=== PATIENT | female | born 1985 | race Caucasian/White ===

== ENCOUNTER 2021-01-03 05:24 | Emergency (ER) | payer SELFPAY ==
[~2021-01-03] VITALS: Ht 162.6 cm; Wt 170.1 kg
--- NOTE | 2021-01-03 05:55 | PHYS DOC ---
Past History Past Surgical History: Tonsillectomy (QI SHAY MD) Alcohol Use: None (QI SHAY MD) Adult General Chief Complaint Chief Complaint: ABDOMINAL PAIN HPI HPI Patient is a 35-year-old female who presents to the emergency department with a chief complaint of right upper quadrant abdominal pain. States has been going on over the last couple of days, is worse after eating, 8 out of 10 at its worst in pain, sharp in nature with no radiation. States it does come with nausea but no vomiting. States she had not anything like this before. Denies any recent traumas, travels, illnesses, fevers, chest pain, shortness of breath, dysuria, hematuria, blood in the stool or diarrhea. (QI SHAY MD) Review of Systems Review of Systems Review of systems otherwise unremarkable except noted in HPI (QI SHAY MD) Allergies Allergies Allergies Coded Allergies Type Severity Reaction Last Updated Verified prednisone Allergy Intermediate 01/03/21 Yes (QI SHAY MD) Physical Exam Physical Exam Constitutional: Well developed, well nourished, no acute distress, non-toxic appearance. [] HENT: Normocephalic, atraumatic, bilateral external ears normal, oropharynx moist, no oral exudates, nose normal. [] Eyes: conjunctiva normal, no discharge. [] Neck: Normal range of motion, no tenderness, supple, no stridor. [] Cardiovascular:Heart rate regular rhythm, no murmur [] Lungs & Thorax: Bilateral breath sounds clear to auscultation [] Abdomen:soft, no tenderness, no masses, no pulsatile masses. [] Skin: Warm, dry, no erythema, no rash. [] Back: No tenderness, no CVA tenderness. [] Extremities: No tenderness, ROM intact, no edema. [] Neurologic: Alert and oriented X 3, no focal deficits noted. [] Psychologic: Affect normal, judgement normal, mood normal. [] (QI SHAY MD) Current Patient Data Vital Signs Vital Signs Date Time Temp Pulse Resp B/P (MAP) Pulse Ox O2 Delivery O2 Flow Rate FiO2 01/03/21 05:31 97.7 96 24 146/88 98 Room Air (QI SHAY MD) EKG EKG [] (QI SHAY MD) Radiology/Procedures Radiology/Procedures [] (QI SHAY MD) Heart Score C/O Chest Pain: No Risk Factors: Risk Factors: DM, Current or recent (<one month) smoker, HTN, HLP, family history of CAD, obesity. Risk Scores: Risk Factors: DM, Current or recent (<one month) smoker, HTN, HLP, family history of CAD, obesity. (QI SHAY MD) Course & Med Decision Making Course & Med Decision Making Patient is a 35-year-old female presents with right-sided flank pain for 2 days Vital signs notable for hypertension. Physical exam noted above. Patient placed on monitor with IV access established and IV fluid begun. Given Zofran for nausea and fentanyl for pain. [] (QI SHAY MD) Course & Med Decision Making I received comprehensive signout from off going physician I personally saw patient repeating certain aspects of history and physical exam. Pain improved with IV pain medication and nausea medication I disclosed all findings such as labs and imaging that were all negative for any emergent or surgical issues Patient establishing care with a local PCP. During decision made to discharge home with short-term dose of narcotic pain medication for severe pain in addition to nausea medication as needed Patient understands all findings from ER visit today and understands this might be an acute presentation more concerning pathology but at present, joint decision made to discharge home Strict return precautions were discussed with good understanding by patient, all questions and concerns addressed prior to ER departure (JHONATHAN CASTRO DO) Dragon Disclaimer Dragon Disclaimer This electronic medical record was generated, in whole or in part, using a voice recognition dictation system. (QI SHAY MD) Departure Departure: Impression: Primary Impression: Abdominal pain Disposition: HOME / SELF CARE / HOMELESS Condition: STABLE Referrals: PCP,NO (PCP) Patient Instructions: Abdominal Pain (Nonspecific) Additional Instructions: You have been evaluated in the Emergency Department today for abdominal pain. Your evaluation was not suggestive of any emergent condition requiring medical intervention at this time. However, some abdominal problems make take more time to appear. Therefore, it is important for you to watch for any new symptoms or worsening of your current condition. Please used information below to contact [facility] for close outpatient follow-up Return to the Emergency Department if you experience worsening pain, persistent fevers greater than 100.4, recurrent vomiting, blood in vomit, blood in stool, dark tarry stool, chest pain, difficulty breathing, or any other concerning symptoms. [facility] Address: [address] , [place] [address] Hours: 8am-4:30pm Scripts Hydrocodone Bit/Acetaminophen (HYDROCODONE-APAP 5-325 ) 1 Each Tablet 1 TAB PO PRN Q6HRS PRN for PAIN, #10 TAB 0 Refills Prov: JHONATHAN CASTRO DO 01/03/21 Ondansetron Hcl (ZOFRAN) 4 Mg Tablet 1 TAB PO Q6HRS for nausea, #20 TAB Prov: JHONATHAN CASTRO DO 01/03/21 QI SHAY MD Jan 03, 2021 05:55 JHONATHAN CASTRO DO Jan 03, 2021 08:58
[2021-01-03] MEDS ORDERED: ONDANSETRON PF 4 MG/2 ML VIAL. IVP ONE (06:00)
[2021-01-03] MEDS ORDERED: IOHEXOL 300 MG/ML 75 ML VIAL. IV ONE (06:00)
[2021-01-03] MEDS ORDERED: CONTRAST GIVEN. MC PRN (06:15)
[2021-01-03 06:27] LABS: BASO # 0.1 x10^3/uL (0.0-0.2); BASO % 1 % (0-3); EOS # 0.3 x10^3/uL (0.0-0.7); EOS % 4 % (0-3); HEMATOCRIT 43.2 % (36.0-47.0); HEMOGLOBIN 14.4 g/dL (12.0-15.5); LYMPH # 1.9 x10^3/uL (1.0-4.8); LYMPH % 24 % (24-48); MEAN CORPUSCULAR HEMOGLOBIN 30 pg (25-35); MEAN CORPUSCULAR HGB CONC 34 g/dL (31-37); MEAN CORPUSCULAR VOLUME 91 fL (79-100); MONO # 0.7 x10^3/uL (0.0-1.1); MONO % 8 % (0-9); NEUT # 5.1 x10^3uL (1.8-7.7); NEUT % 63 % (31-73); PLATELET COUNT 320 x10^3/uL (140-400); RED BLOOD COUNT 4.76 x10^6/uL (3.50-5.40); RED CELL DISTRIBUTION WIDTH 14.1 % (11.5-14.5)
[2021-01-03 06:31] LABS: BILIRUBIN,URINE NEG (NEG); CLARITY,URINE CLEAR; COLOR,URINE YELLOW; GLUCOSE,URINE NEG (NEG); NITRITE,URINE NEG (NEG); UROBILINOGEN,URINE 0.2 mg/dL (0.2 mg/dL)
[2021-01-03 06:33] LABS: BACTERIA,URINE 0 /HPF (0-FEW); RBC,URINE RARE /HPF (0-2); SQUAMOUS EPITHELIAL CELL,UR OCC /LPF; WBC,URINE OCC /HPF (0-4)
[2021-01-03 06:34] VITALS: BP 144/66
[2021-01-03 06:36] LABS: CALCIUM 8.7 mg/dL (8.5-10.1); CREATININE 0.9 mg/dL (0.6-1.0); GFR 72.1; POTASSIUM 5.1 mmol/L (3.5-5.1)
[2021-01-03 06:41] LABS: ALBUMIN 3.7 g/dL (3.4-5.0); TOTAL BILIRUBIN 0.3 mg/dL (0.2-1.0); TOTAL PROTEIN 7.4 g/dL (6.4-8.2)
[2021-01-03 07:41] LABS: U PREG PATIENT NEGATIVE (NEG)
--- NOTE | 2021-01-03 08:24 | RAD ---
PQRS Compliance Statement: One or more of the following individualized dose reduction techniques were utilized for this examinat ion: 1. Automated exposure control 2. Adjustment of the mA and/or kV according to patient size 3. Use of iterative reconstruction technique CT abdomen/pelvis with contrast 01/03/2021 7:49 AM INDICATION: Right upper quadrant pain COMPARISON: None available TECHNIQUE: Multiple axial CT images of the abdomen and pelvis were obtained after the intravenous adm inistration of nonionic contrast. Coronal and sagittal reformats are provided. FINDINGS: Lung bases are clear. There is small hiatal hernia. Heart size is within normal limits. Liver, spleen , adrenal glands, pancreas and gallbladder are normal in appearance. The abdominal aorta is normal in course and caliber. There are no pathologically enlarged lymph nodes in the abdomen and pelvis. Ther e is no intrahepatic or extrahepatic biliary ductal dilatation. There is no abdominal free fluid. The re is no free intraperitoneal air. Portal venous system appears widely patent. Small and large bowel are normal in caliber. There is no evidence for bowel obstruction. There are no pericolonic inflammatory changes. A normal, nondilated appendix is visualized without adjacent infla mmatory changes. Nonenlarged mesenteric lymph nodes identified in the right lower quadrant measuring up to 7.5 mm. Stomach and proximal small bowel are normal. The kidneys enhance symmetrically. There is no suspicious renal mass. There is no hydronephrosis. The re are no suspected calculi within the kidneys, ureters or urinary bladder. Phleboliths are identifie d within the pelvis. Urinary bladder is within normal limits given degree of distention. Uterus and a dnexa are normal by CT. IUD is in appropriate position. No suspicious pelvic mass. IMPRESSION: No acute abnormality identified within the abdomen and pelvis. Electronically signed by: Livier Dennison MD (01/03/2021 8:21 AM) [id number]
[2021-01-03] MEDS ORDERED: ONDA4TAB7 PO (09:32)
[2021-01-03] MEDS ORDERED: HYDR-2155 PO (09:32)
== END 2021-01-03 09:43 | disposition home or self-care (01) ==
LOC: ER 05:24
DX: R10.11 Right upper quadrant pain (principal); I10 Essential (primary) hypertension; Z88.8 Allergy status to other drugs, medicaments and biological substances
CPT/HCPCS: 36415; 74177; 80053; 81001; 81025; 85025; 96374; 96375; 96376; 99285; J2405; J3010; Q9967

== ENCOUNTER 2021-03-11 18:09 | Emergency (ER) | payer SELFPAY ==
[~2021-03-11] VITALS: Ht 162.6 cm; Wt 168.9 kg
[~2021-03-11 18:09] MED LIST: HYDR-2155 PO; ONDA4TAB7 PO
--- NOTE | 2021-03-11 18:55 | PHYS DOC ---
Past History Past Surgical History: Tonsillectomy Alcohol Use: None General Adult EDM: Chief Complaint: SHORTNESS OF BREATH HPI: HPI: Patient is a 35-year-old female coming in for cough that is productive of green phlegm, congestion, posttussive emesis, and fevers. Patient states has been going on for about a week. Has taken a cough medicine and Mucinex occasionally. Has not seen her primary care provider for this. Received her flu vaccine within the past 2 weeks. Has not had her Covid vaccinations. Denies any history of asthma or other lung conditions, states she has had pneumonia once in the past. No loss of smell or taste, no diarrhea or other complaints. Patient has a history of tachycardia and takes propanolol, did not take her medications today and has a heart rate about 110. Review of Systems: Review of Systems: All other systems within normal limits except for as noted in the HPI Allergies: Allergies: Allergies Coded Allergies Type Severity Reaction Last Updated Verified prednisone Allergy Intermediate 03/11/21 Yes Physical Exam: PE: Constitutional: Well developed, well nourished, no acute distress, non-toxic appearance. [] HENT: Normocephalic, atraumatic, bilateral external ears normal, nose normal. [] Eyes: PERRLA, conjunctiva normal, no discharge. [] Neck: No rigidity, supple, no stridor. [] Cardiovascular: Regular rate and rhythm, brisk cap refill [] Lungs & Thorax: Non labored symmetric respirations, no tachypnea or respiratory distress. Breath sounds clear Abdomen: Soft, nondistended. Skin: Warm, dry, no erythema, no rash. [] Back: Unremarkable Extremities: No deformities, range of motion grossly intact, no lower extremity edema [] Neurologic: Alert and oriented X 3, no focal deficits noted. [] Psychologic: Affect normal, judgement normal, mood normal. [] Current Patient Data: Vital Signs: Vital Signs Date Time Temp Pulse Resp B/P (MAP) Pulse Ox O2 Delivery O2 Flow Rate FiO2 03/11/21 18:15 98.4 112 22 126/76 (93) 100 Room Air EKG: EKG: [] Radiology/Procedures: Radiology/Procedures: [address] [address] IMAGING REPORT Signed PATIENT: MARÍA ELENA GUSTAFSON ACCOUNT: [id number] : 1985 LOCATION: ER AGE: 35 SEX: F EXAM STATUS: REG ER ORD. PHYSICIAN: LOPEZ HERRERA MD REASON: cough PROCEDURE: CHEST PA & LATERAL EXAMINATION: Chest radiograph. VIEWS: Frontal and lateral views of the chest COMPARISON: None INDICATION:35 years, Female, cough. FINDINGS: Normal cardiomediastinal silhouette. No focal consolidation. No pleural effusion or pneumothorax. No acute osseous process. IMPRESSION: No acute cardiopulmonary process. Electronically signed by: Randy Vee DO (03/11/2021 7:23 PM) [facility] DICTATED AND SIGNED BY: RANDY VEE DO DATE: 03/11/211922 CC: LOPEZ HERRERA MD; PCP,NO ~MTH0 0 [] Heart Score: C/O Chest Pain: No Risk Factors: Risk Factors: DM, Current or recent (<one month) smoker, HTN, HLP, family history of CAD, obesity. Risk Scores: Score 0 - 3: 2.5% MACE over next 6 weeks - Discharge Home Score 4 - 6: 20.3% MACE over next 6 weeks - Admit for Clinical Observation Score 7 - 10: 72.7% MACE over next 6 weeks - Early Invasive Strategies Course & Med Decision Making: Course & Med Decision Making Pertinent Labs and Imaging studies reviewed. (See chart for details) [] Dragon Disclaimer: Dragon Disclaimer: This electronic medical record was generated, in whole or in part, using a voice recognition dictation system. Departure Departure: Impression: Primary Impression: Bronchitis Additional Impression: Person under investigation for COVID-19 Disposition: HOME / SELF CARE / HOMELESS Condition: STABLE Referrals: PCP,NO (PCP) Additional Instructions: You have been tested for or diagnosed with COVID-19. It is an infection caused by a new type of coronavirus. COVID-19 will cause cold-like or mild flu symptoms in most. It can cause more severe symptoms like problems breathing in some. There is no treatment for COVID-19. The body will clear the infection over time. Self-care will help to ease discomfort. Steps to Take: Self-Care Rest as needed. Healthy habits may help you feel better. Steps include: Choose healthy foods including fruits and vegetables. Drink water throughout the day. Get plenty of sleep each night. If you smoke, try to quit. It may ease breathing. Avoid alcohol. Keep Others Healthy The virus can spread to others. Droplets are released every time you sneeze or cough. The droplets can get into the mouth, nose, or eyes of people near you and lead to infection. To lower the chances of spreading COVID-19 to others: Stay at home until your doctor has said it is safe to leave. If you tested positive this will mean staying isolated until both of the following are true: At least 7 days have passed since the start of illness. You are free of fever for at least 72 hours without the use of medicine. During this time: - Avoid public areas, events, or transportation. Do not return to work or school until your doctor has said it is safe to do so. - Call ahead if you need to go to a medical center. Let them know you may have COVID-19. It will help them guide you where to go. They may also ask you to wear a facemask when you come to the office. - If you call for emergency medical services, let them know you may have COVID- 19. While at home: - Try to avoid close contact with others. Stay about 6 feet away. - If possible, spend most of your time in a separate room from others. - Use a face mask if you will be in close contact with others such as sharing a room or vehicle. - Have someone wipe down common surfaces in the home. Use household certified orthotist/pedorthist every day on areas like doorknobs, counters, or sinks. - Cough or sneeze into a tissue. Throw the tissue away right after use. If a tissue is not available, cough or sneeze into your elbow. - Wash your hands often. Wash them after sneezing or coughing. Use soap and wilma er and wash for at least 20 seconds. Alcohol based hand road cleaner can be used if soap and water is not available. - Do not prepare food for others. Avoid sharing personal items like forks, spoons, or toothbrushes. - Avoid close contact with pets while you are sick. There is no evidence of the virus passing to pets. This is a safety step until more is known about this virus. Isolation can be frustrating. Social interaction can help. Keep in touch with friends and family through phone and tech options. You can still interact with others in your home, just keep a safe distance of about 6 feet. Follow-up: Your doctors office will check in with you to see if there are any changes in your health. You may be asked to keep track of symptoms to share with them. They will also let you know when you are clear to be in public again. Problems to Look Out For: Contact your doctor if your recovery is not going as you expect. Get emergency care if you have problems such as: - Trouble breathing - Nonstop chest pain or pressure - Changes in awareness, confusion, or problems waking - Lips or face have bluish color - Worsening of symptoms If you think you have an emergency, call for emergency medical services right away. As taken from [facility] Azithromycin (ZITHROMAX) 250 Mg Tablet 1 PKG PO UD for antibiotic, #6 TAB Prov: LOPEZ HERRERA MD 03/11/21 Benzonatate (TESSALON PERLE) 100 Mg Capsule 1 CAP PO TID PRN for COUGH for 7 Days, #21 CAP Prov: LOPEZ HERRERA MD 03/11/21 LOPEZ HERRERA MD Mar 11, 2021 18:55
--- NOTE | 2021-03-11 19:25 | RAD ---
EXAMINATION: Chest radiograph. VIEWS: Frontal and lateral views of the chest COMPARISON: None INDICATION:35 years, Female, cough. FINDINGS: Normal cardiomediastinal silhouette. No focal consolidation. No pleural effusion or pneumothorax. No acute osseous process. IMPRESSION: No acute cardiopulmonary process. Electronically signed by: Apollo Cordova DO (03/11/2021 7:23 PM) [facility]
[2021-03-11] MEDS ORDERED: BENZONATATE 100 MG CAPSULE. PO ONE (19:30)
[2021-03-11 19:38] LABS: INFLUENZA A PATIENT NEGATIVE (NEGATIVE); INFLUENZA B PATIENT NEGATIVE (NEGATIVE)
[2021-03-11] MEDS ORDERED: AZIT250T PO (19:44)
[2021-03-11] MEDS ORDERED: BENZ100C PO (19:44)
[2021-03-11 19:45] VITALS: BP 111/74
== END 2021-03-11 19:58 | disposition home or self-care (01) ==
LOC: ER 18:09
DX: J40 Bronchitis, not specified as acute or chronic (principal); Z20.822 Contact with and (suspected) exposure to COVID-19
CPT/HCPCS: 71046; 87426; 87804; 99284; C9803; U0003

== ENCOUNTER → 2021-03-31 | Outpatient (CLI) | payer OTHER ==
[2021-03-11 19:45] VITALS: BP 111/74
[~2021-03-31] MED LIST changes: +AZIT250T PO; +BENZ100C PO
--- NOTE | 2021-03-31 14:48 | RAD ---
EXAM: Right hip, 2 views; right knee, 3 views. HISTORY: Pain. Arthritis. COMPARISON: None. FINDINGS: Right hip: 2 views of the right hip are obtained. There is no fracture, dislocation or subluxation. T he femoral head is normal in configuration. Right knee: 3 views of the right knee are obtained. There is no fracture, dislocation or subluxation. There is mild medial compartment spurring. There is no joint effusion. IMPRESSION: 1. Mild medial compartment osteoarthritis of the right knee. 2. No acute osseous finding. Electronically signed by: Janeth Aguirre MD (03/31/2021 2:46 PM) [id number]
== END ==
LOC: RAD 14:33
PROVIDERS: ATTEND Nurse Practitioner Primary Care
DX: M17.11 Unilateral primary osteoarthritis, right knee (principal); M76.891 Other specified enthesopathies of right lower limb, excluding foot; M25.551 Pain in right hip
CPT/HCPCS: 73502; 73562